=== PATIENT | female | born 1970 | race Caucasian/White ===

== ENCOUNTER 2019-01-22 22:17 | Observation (INO) | payer OTHER ==
[2019-01-22] MEDS ORDERED: ASPIRIN 81 MG TABLET, CHEWABLE PO ONE (22:31)
--- NOTE | 2019-01-22 22:31 | ER Document Report ---
ED Medical Screen (RME) - General Stated Complaint: CHEST PAIN Time Seen by Provider: 01/22/19 22:18 Mode of Arrival: Medic Information source: Patient Notes: Patient is a 48-year-old female who presents from the [facility] with complaint of chest pain. Patient reports the pain started approximately 1 hour prior to arrival. She reports the pain is on the left side of her chest located right behind her breast. Feels like a heavy pressure on her chest with associated nausea, shortness of breath and radiation up into her left jaw. Patient reports past medical history of [place], CVA and pulmonary embolisms. Patient takes Coumadin and ibuprofen.
--- NOTE | 2019-01-22 23:00 | RADIOLOGY REPORT (SQ) ---
EXAM DESCRIPTION: XR CHEST 1 VIEW COMPLETED DATE/TME: 01/22/2019 22:31 CLINICAL HISTORY: 48 years, Female, chest pain COMPARISON: None. NUMBER OF VIEWS: 1 TECHNIQUE: Portable chest LIMITATIONS: None. FINDINGS: Heart size normal. Osteopenia. Lungs clear. No pneumothorax IMPRESSION: No acute cardiopulmonary process copyright 2010 [employer]- All Rights Reserved
--- NOTE | 2019-01-22 23:02 | EKG REPORT ---
SEVERITY:- ABNORMAL ECG - SINUS RHYTHM LEFT ATRIAL ABNORMALITY BORDERLINE T WAVE ABNORMALITIES : Confirmed by: Madalyn Santillan 22-Jan-2019 23:01:44
[2019-01-22] MEDS ORDERED: ACETAMINOPHEN 325 MG TABLET PO ONE (23:35)
[2019-01-23 00:34] LABS: ABSOLUTE BASOPHILS # (AUTO) 0.1 10^3/uL (0.0-0.2); ABSOLUTE EOSINOPHILS # (AUTO) 0.1 10^3/uL (0.0-0.6); ABSOLUTE LYMPHOCYTES (AUTO) 2.6 10^3/uL (0.5-4.7); ABSOLUTE MONOCYTES (AUTO) 0.4 10^3/uL (0.1-1.4); ABSOLUTE NEUT (AUTO) 3.3 10^3/uL (1.7-8.2); EOSINOPHILS % (AUTO) 1.3 % (0-6); HEMATOCRIT 39.6 % (36.0-47.0); HEMOGLOBIN 13.7 g/dL (12.0-15.5); LYMPHOCYTES % (AUTO) 40.1 % (13-45); MEAN CORPUSCULAR HEMOGLOBIN 29.8 pg (27.0-33.4); MEAN CORPUSCULAR HGB CONC 34.5 g/dL (32.0-36.0); MEAN CORPUSCULAR VOLUME 86 fl (80-97); MONOCYTES % (AUTO) 5.7 % (3-13); PLATELET COUNT 356 10^3/uL (150-450); RED BLOOD COUNT 4.59 10^6/uL (3.72-5.28); RED CELL DISTRIBUTION WIDTH 13.9 % (11.5-14.0); SEGMENTED NEUTROPHILS % (AUTO) 51.9 % (42-78); TOTAL CELLS COUNTED % (AUTO) 100 %; WHITE BLOOD COUNT 6.4 10^3/uL (4.0-10.5)
[2019-01-23 00:46] LABS: ALANINE AMINOTRANSFERASE 20 U/L (9-52); ALBUMIN 4.5 g/dL (3.5-5.0); ALKALINE PHOSPHATASE 86 U/L (38-126); ANION GAP 10 (5-19); ASPARTATE AMINO TRANSFERASE 18 U/L (14-36); BILIRUBIN,DIRECT 0.2 mg/dL (0.0-0.4); BILIRUBIN,TOTAL 0.5 mg/dL (0.2-1.3); BLOOD UREA NITROGEN 20 mg/dL (7-20); CALCIUM 10.5 mg/dL (8.4-10.2); CARBON DIOXIDE 28 mmol/L (22-30); CHLORIDE 101 mmol/L (98-107); CREATINE KINASE 25 U/L (30-135); GLUCOSE 93 mg/dL (75-110); SODIUM 138.7 mmol/L (137-145); TOTAL PROTEIN 7.8 g/dL (6.3-8.2)
[2019-01-23 00:58] LABS: CREATINE KINASE MB 0.54 ng/mL (<4.55)
[2019-01-23 01:02] LABS: TROPONIN I < 0.012 ng/mL
--- NOTE | 2019-01-23 02:37 | ER Document Report ---
ED General - General Chief Complaint: Chest Pain > 30 Stated Complaint: CHEST PAIN Time Seen by Provider: 01/22/19 22:18 Mode of Arrival: Medic Notes: Patient is a 48-year-old female who presents with complaint left-sided chest pain that radiates to the left jaw and into the left shoulder. Patient said that it came on quickly and she felt short of breath and nauseous. She did vomit once. She received aspirin and some nitro. She said that did help. Says her pain is almost gone but not completely gone at this time after receiving nitro. She does have history of factor V Leiden deficiency. She has a history of PEs. She is supposed to be on Coumadin. She says she ran out of Coumadin for approximately 2 weeks but recently restarted it a few days ago. She denies any leg pain or leg swelling. No abdominal pain. No other complaints at this time. She does have one previous history of [place] actually 3-1/2-4 years ago. At that time she did have a cardiac cath which did not show any evidence of blockage and therefore she did not require stenting. Her primary care physician is at [facility] and [facility]. TRAVEL OUTSIDE OF THE [place] IN LAST 30 DAYS: No - Related Data Allergies/Adverse Reactions: No Known Allergies Allergy (Unverified 01/23/19 03:47) Past Medical History - General Information source: Patient - Social History Smoking Status: Current Every Day Smoker Frequency of alcohol use: None Drug Abuse: None Family History: Reviewed & Not Pertinent Patient has suicidal ideation: No Patient has homicidal ideation: No Renal/ Medical History: Denies: Hx Peritoneal Dialysis Review of Systems - Review of Systems Notes: My Normal Review Basic REVIEW OF SYSTEMS: CONSTITUTIONAL : Denies fever, chills, or sweats. Denies recent illness. EENT: Denies eye, ear, throat, or mouth pain or symptoms. Denies nasal or sinus congestion. CARDIOVASCULAR: Chest pain RESPIRATORY: Some shortness of breath GASTROINTESTINAL: Denies abdominal pain. Vomiting x1 GENITOURINARY: Denies difficulty urinating, painful urination, burning, frequency, or blood in urine. MUSCULOSKELETAL: Denies neck or back pain or joint pain or swelling. SKIN: Denies rash or skin lesions. NEUROLOGICAL: Denies altered mental status or loss of consciousness. Denies headache. Denies weakness or paralysis or loss of use of either side. Denies problems with gait or speech. Denies sensory or motor loss. ALL OTHER SYSTEMS REVIEWED AND NEGATIVE. Physical Exam - Vital signs Vitals: Temp Pulse Resp BP Pulse Ox 98.0 F 90 18 123/77 100 01/22/19 22:56 01/22/19 22:56 01/22/19 22:56 01/22/19 22:56 01/22/19 22:56 - Notes Notes: General Appearance: Well nourished, alert, cooperative, no acute distress, mild obvious discomfort. Vitals: reviewed, See vital signs table. Head: no swelling or tenderness to the head Eyes: PERRL, EOMI, Conjuctiva clear Lungs: No wheezing, No rales, No rhonci, No accessory muscle use, good air exchange bilaterally. Heart: Normal rate, Regular rythm, No murmur, no rub Abdomen: Normal BS, soft, No rigidity, No abdominal tenderness, No guarding, no rebound, no abdominal masses, no organomegaly Extremities: strength 5/5 in all extremities, good pulses in all extremities, no swelling or tenderness in the extremities, no edema. Skin: warm, dry, appropriate color, no rash Neuro: speech clear, oriented x 3, normal affect, responds appropriately to questions. Course - Re-evaluation Re-evalutation: 01/23/19 04:50 Patient's chest pain is resolved now with the nitro. She has Nitropaste in andrea ce. She received aspirin. She does admit that she ran out of her Coumadin for about 2 weeks but restarted recently however her INR is only 0.92. I therefore did go forward the CT of the chest which shows no evidence of pulmonary embolism. Character is more consistent with that of possible coronary disease and that it was left-sided radiating into the neck and into the arm and she did vomit with it. Also the pain was resolved with nitro. Patient's initial EKG and troponin are negative. I felt appropriate to consult hospitalist for consideration for admission. I did speak with Dr. العلي agrees to evaluate the patient for consideration for admission. Dictation of this chart was performed using voice recognition software; therefore, there may be some unintended grammatical errors. - Vital Signs Vital signs: Temp Pulse Resp BP Pulse Ox 98.0 F 90 18 123/77 100 01/22/19 22:56 01/22/19:56 01/22/19 22:56 01/22/19 22:56 01/22/19 22:56 - Laboratory Result Diagrams: 01/23/19 00:19 01/23/19 00:19 Laboratory results interpreted by me: 01/23/19 00:19 Calcium 10.5 H Creatine Kinase 25 L - EKG Interpretation by Me Additional EKG results interpreted by me: 01/23/19 02:36 EKG is reviewed and interpreted by me. EKG shows normal sinus rhythm with a rate of 83 beats per minute. No ST segment elevation or depression. No ischemic T wave inversions. IL interval, QRS duration, QT intervals are within normal range. No old EKG available for comparison. Discharge - Discharge Clinical Impression: Chest pain Qualifiers: Chest pain type: unspecified Qualified Code(s): R07.9 - Chest pain, unspecified Condition: Stable Disposition: ADMITTED OBSERVATION Admitting Provider: Hospitalist Unit Admitted: Telemetry
[2019-01-23] MEDS ORDERED: NITROGLYCERIN 2% OINTMENT 1 GM PACKET TP ONE (02:49)
[2019-01-23 03:04] LABS: INTERNATIONAL RATION (INR) 0.92; PROTHROMBIN TIME 12.8 SEC (11.4-15.4)
[2019-01-23] MEDS ORDERED: NORMAL SALINE 500 ML IV ONE (03:50)
--- NOTE | 2019-01-23 04:41 | RADIOLOGY REPORT (SQ) ---
EXAM DESCRIPTION: CT CHEST ANGIOGRAPHY WITHOUT THEN WITH IV CONTRAST COMPLETED DATE/TME: 01/23/2019 03:50 CLINICAL HISTORY: 48 years, Female, Hx of PE, subtherapeutic INR COMPARISON: None. TECHNIQUE: 536 Images stored on PACS. All CT scanners at this facility use dose modulation, iterative reconstruction, and/or weight based dosing when appropriate to reduce radiation dose to as low as reasonably achievable (ALARA). Axial images were obtained with coronal and sagittal MIPS reconstructions [facility]: Dose Right [facility]: CareDose [facility]: Dose Right [facility]: Teradose 4D [facility]: [employer] LIMITATIONS: None. FINDINGS: The mediastinal vasculature enhances normally. No intraluminal filling defect to suggest pulmonary most. Negative for thoracic or degenerative or dissection. Heart and pericardium are unremarkable. Limited evaluation of upper abdomen shows cystic change to the liver. Bilateral breast prostheses. Osseous structures grossly intact. No pneumothorax. Visualized airways patent. Lungs clear. IMPRESSION: Negative for acute intrathoracic process TECHNICAL DOCUMENTATION: Quality ID # 436: Final reports with documentation of one or more dose reduction techniques (e.g., Automated exposure control, adjustment of the mA and/or kV according to patient size, use of iterative reconstruction technique) copyright 2010 [employer]- All Rights Reserved
[2019-01-23] MEDS ORDERED: ACETAMINOPHEN 325 MG TABLET PO PRN (05:05)
[2019-01-23] MEDS ORDERED: ONDANSETRON HCL INJ/PF 4 MG/2 ML SDV IV PRN (05:05)
[2019-01-23] MEDS ORDERED: GLUCAGON,HUMAN RECOMB 1 MG INJ SUBCUT PRN (05:05)
[2019-01-23] MEDS ORDERED: MAGNESIUM HYDROXIDE SUSP 30 ML UDCUP PO PRN (05:05)
[2019-01-23] MEDS ORDERED: DEXTROSE 50%-WATER 25 GM/50 ML DISP.SYRIN IV PRN ×2 (05:05)
[2019-01-23] MEDS ORDERED: ACETAMINOPHEN 650 MG SUPP.RECT PR PRN (05:05)
[2019-01-23] MEDS ORDERED: DEXTROSE 40% GEL 15 GM TUBE PO PRN ×2 (05:05)
[2019-01-23] MEDS ORDERED: MORPHINE SULFATE 10 MG/ML INJ IV PRN (05:15)
[2019-01-23] MEDS ORDERED: NITROGLYCERIN 0.4 MG/TAB 25 TAB/BOTTLE SL PRN (05:16)
[2019-01-23 05:37] LABS: CHOLESTEROL 238.47 mg/dL (0-200); CREATINE KINASE 26 U/L (30-135); TRIGLYCERIDES 83 mg/dL (<150)
[2019-01-23 05:48] LABS: DIRECT LDL 141 mg/dL (<100)
[2019-01-23] MEDS ORDERED: PANTOPRAZOLE SODIUM 40 MG TABLET.DR PO SCH (06:00)
[2019-01-23] MEDS ORDERED: WARFARIN SODIUM 5 MG TABLET PO ONE (06:45)
--- NOTE | 2019-01-23 06:45 | PDOC H&P ---
History of Present Illness Admission Date/PCP: 01/23/19 04:57 Primary CARE physician: Jacque cuenca in [place] Patient complains of: Chest pain History of Present Illness: ERIC HART is a 48 year old female with history of multiple medical problems that will be mentioned below, who is currently an inmate and presents with left substernal and inframammary chest pain that started as a sharp pain and graded 9/10 in severity with radiation to her left jaw as well as nausea and vomiting twice. [facility] and later experienced chest heaviness and dyspnea. She denies any cough or wheezing or hemoptysis. She has a history of factor V Leiden deficiency and has been on Coumadin but ran out for 2-1/2 weeks and went back on it to days ago. Upon presentation to the emergency room her EKG showed normal sinus rhythm with a rate of 83 with left atrial enlargement and Q waves inferiorly. Vital signs were within normal and labs revealed normal CBC and INR 0.92, calcium of 10.5 and her initial set of cardiac enzymes as well as a repeat set came back negative. Portable chest X ray showed no acute cardiopulmonary disease and chest CTA revealed no evidence for PE or acute pathology. The patient was given 1 sublingual nitro glycerin on route to the ER and later at the a gram of Nitropaste as well as 4 baby aspirin. She was fairly comfortable during my interview. She will be admitted to an observation telemetry bed for further evaluation and management. Past Medical History Past Medical History: tobacco abuse, hypertension, [place], CVA, Factor 5 liden mutation, PE twice , cerebral aneurysm x2 s/p clipping and stenting Medical History: Other Neurological Medical History: Reports: Ischemic CVA Psychiatric Medical History: Reports: Tobacco Dependency Hematology: Reports: Other - Factor 5 Liden deficiency Hematology History Note: Factor V Leiden deficiency, history of PE twice, history of cerebral aneurysms x2 Past Surgical History Past Surgical History: Craniotomy ad cerebral stent, and clipping of a cerebral aneurysm, 2 laparotomies, 5 laparoscopies, bilateral knee surgery, breast augmentation twice, hystrerectomy, appendectomy and tonsillectomy Past Surgical History: Reports: Tonsillectomy, Other - Craniotomy ad cerebral stent, and clipping of a cerebral aneurysm, Social History Smoking Status: Current Every Day Smoker Frequency of Alcohol Use: None Hx Recreational Drug Use: No Family History Family History: CAD, Hypertension, Malignancy Parental Family History Reviewed: Yes Children Family History Reviewed: Yes Sibling(s) Family History Reviewed.: Yes Medication/Allergy Allergies/Adverse Reactions: No Known Allergies Allergy (Unverified 01/23/19 03:47) Review of Systems Review of Systems: As per history of present illness. All pertinent systems were reviewed above. Constitutional, HEENT, cardiovascular, respiratory, GI, , musculoskeletal, corby ro, psychiatric, endocrine, integumentary and hematologic systems were reviewed and are otherwise negative/unremarkable except for positive findings mentioned above in the HPI. Physical Exam Vital Signs: Temp Pulse Resp BP Pulse Ox 98.0 F 90 20 125/86 H 98 01/22/19 22:56 01/22/19 22:56 01/23/19 05:00 01/23/19 04:00 01/23/19 05:00 Intake & Output 01/21/19 01/22/19 01/23/19 06:59 06:59 06:59 Weight 64.4 kg Exam: Generally: Pleasant middle-aged female in no acute distress Vital signs-as listed Head - atraumatic, normocephalic. Pupils - equal, round and reactive to light and accommodation. Extraocular movements are intact. No scleral icterus. Oropharynx - moist mucous membranes and tongue. No pharyngeal erythema or exudate. Neck - supple. No JVD. Carotid pulses 2+ bilaterally. No carotid bruits. No palpable thyromegaly or lymphadenopathy. Cardiovascular - regular rate and rhythm. Normal S1 and S2. No murmurs, gallops or rubs. Lungs - clear to auscultation bilaterally. Abdomen - soft and nontender. Positive bowel sounds. No palpable organomegaly or masses. Extremities - no pitting edema, clubbing or cyanosis. Neuro - grossly non-focal. Skin - no rashes. Breast, pelvic and rectal - deferred Results Laboratory Results: 01/23/19 00:19 01/23/19 00:19 01/23/19 01/23/19 00: 00:19 WBC 6.4 RBC 4.59 Hgb 13.7 Hct 39.6 MCV 86 MCH 29.8 MCHC 34.5 RDW 13.9 Plt Count 356 Seg Neutrophils % 51.9 Lymphocytes % 40.1 Monocytes % 5.7 Eosinophils % 1.3 Basophils % 1.0 Absolute Neutrophils 3.3 Absolute Lymphocytes 2.6 Absolute Monocytes 0.4 Absolute Eosinophils 0.1 Absolute Basophils 0.1 Sodium 138.7 Potassium 4.0 Chloride 101 Carbon Dioxide 28 Anion Gap 10 BUN 20 Creatinine 0.76 Est GFR ( Amer) > 60 Est GFR (Non-Af Amer) > 60 Glucose 93 Calcium 10.5 H Total Bilirubin 0.5 AST 18 ALT 20 Alkaline Phosphatase 86 Total Protein 7.8 Albumin 4.5 01/23/19 01/23/19 01/23/19 00:19 00:19 03:55 Creatine Kinase 25 L CK-MB (CK-2) 0.54 Troponin I < 0.012 < 0.012 Impressions: Chest X-Ray 01/22/19 22:31 IMPRESSION: No acute cardiopulmonary process copyright 2010 [employer]- All Rights Reserved Chest/Abdomen CTA 01/23/19 03:50 IMPRESSION: Negative for acute intrathoracic process TECHNICAL DOCUMENTATION: Quality ID # 436: Final reports with documentation of one or more dose reduction techniques (e.g., Automated exposure control, adjustment of the mA and/or kV according to patient size, use of iterative reconstruction technique) copyright 2010 [employer]- All Rights Reserved Assessment and Plan - Diagnosis (1) Chest pain Qualifiers: Chest pain type: unspecified Qualified Code(s): R07.9 - Chest pain, unspecified Is this a current diagnosis for this admission?: Yes Plan: Chest pain, rule out acute coronary syndrome. The patient will be admitted to an observation telemetry bed. Will follow serial cardiac enzymes and EKGs. We will obtain a cardiology consult in a.m. for further cardiac risk stratification. The patient will be placed on aspirin as well as p.r.n. sublingual nitroglycerin and morphine sulfate for pain. (2) Tobacco abuse Is this a current diagnosis for this admission?: Yes Plan: Smoking cessation was discussed with the patient and will be further discussed here (3) PVD (peripheral vascular disease) Is this a current diagnosis for this admission?: Yes Plan: ASPIRIN... (4) Factor 5 Leiden mutation, heterozygous Is this a current diagnosis for this admission?: Yes Plan: CONTINUE COUMADIN (5) DVT prophylaxis Is this a current diagnosis for this admission?: Yes Plan: Subcutaneous Lovenox pending therapeutic INR
[2019-01-23 08:50] LABS: INTERNATIONAL RATION (INR) 0.97; PROTHROMBIN TIME 13.4 SEC (11.4-15.4)
[2019-01-23] MEDS: ENOXAPARIN SODIUM INJ 40 MG/0.4 ML DISP.SYRIN SUBCUT SCH (09:38)
[2019-01-23] MEDS: ASPIRIN 325 MG TABLET, ENT COATED PO SCH (09:38)
[2019-01-23 12:23] LABS: CREATINE KINASE MB 0.49 ng/mL (<4.55)
[2019-01-23 12:28] LABS: TROPONIN I < 0.012 ng/mL
--- NOTE | 2019-01-23 12:32 | EKG REPORT ---
SEVERITY:- ABNORMAL ECG - SINUS RHYTHM LEFT ATRIAL ABNORMALITY BORDERLINE T ABNORMALITIES, ANT-LAT LEADS : Confirmed by: Madalyn Santillan 23-Jan-2019 12:31:19
--- NOTE | 2019-01-23 14:16 | Progress Note ---
Provider Note Provider Note: Patient evaluated. She is resting comfortably in her bed. Prescription lead security officer is present. She is requesting a diet, and is placed on a cardiac and vitamin K appropriate diet. Continue on Coumadin Lovenox cross bridge. Atorvastatin 20 mg nightly started for hyperlipidemia. She is already on aspirin.
[2019-01-23] MEDS: NORMAL SALINE 1000 ML 1,000 ML IV PRN (15:05)
[2019-01-23 18:20] LABS: CREATINE KINASE MB 0.48 ng/mL (<4.55)
[2019-01-23 18:24] LABS: TROPONIN I < 0.012 ng/mL
[2019-01-23] MEDS ORDERED: BUSPIRONE HCL 10 MG TABLET PO PRN (21:00)
[2019-01-23] MEDS: MIRTAZAPINE 15 MG TABLET PO SCH (21:25)
[2019-01-23] MEDS: BENZTROPINE MESYLATE 1 MG TABLET PO SCH (21:25)
[2019-01-23] MEDS: DONEPEZIL HCL 5 MG TABLET PO SCH (21:25)
[2019-01-23] MEDS: ATORVASTATIN CALCIUM 20 MG TABLET PO SCH (21:26)
[2019-01-23] MEDS: OLANZAPINE 5 MG TAB.RAPDIS PO SCH (21:26)
[2019-01-23] MEDS: ALPRAZOLAM 0.5 MG TABLET PO SCH (21:26)
[2019-01-23] MEDS ORDERED: (PENDING PHARMACY ID) (Prazosin Hcl [Minipress] 2 MG) PO SCH (22:00)
--- NOTE | 2019-01-23 22:27 | PDOC CONSULTATION ---
Consultation-Blank Consultation: CARDIOLOGY CONSULTATION by Dr. Fatuma Carrasquillo. Patient seen at 3:30 PM on 9. Note 60 minutes spent on this patient more than 50% of time spent in direct patient care. REASON all plan For CONSULTATION: Chest Pain in a Patient with a History of Coronary Artery Disease. HISTORY OF PRESENT ILLNESS: Patient Is a 48-year-old Female with Known History of Hypertension, Coronary Artery Disease, Prior History of MN, Factor V Leyden Deficiency, with a History of Bilateral Pulmonary Emboli Embolism x2 on Coumadin Who States That She Had Sudden Onset of Sharp Pain in the Left Front of the Chest in the Inframammary Area. With Radiation up into the Neck and Jaw. The Pain Lasted for about a Hour and a Half. She States That When She Came to the Emergency Room She Still Had Pain. She Was Given Nitropaste after 1 Sublingual Nitroglycerin, and 45 Minutes Later the Pain Spontaneously Subsided after the Placement of the Nitropaste. She States That She Was Slightly Short of Breath. There Was No Tenderness in the Chest to Palpation Where She Had the Chest Pain. Exertion Did Not Increase the Pain. There Is No Relieving or Aggravating Factors. There Was No Palpitations. The Patient States That This Sort of Pain Is Different from the One That She Had When She Stated That She Was Told That She Had a Myocardial Infarction in the past. There Is No Palpitations. There Is No PND Orthopnea or Leg Edema. There Is No Dizziness, Near-Syncope or Syncope. There Is No Recurrence of TIA CVA Symptoms. Note the at Present the Patient Is Intubated of [facility]. PAST MEDICAL HISTORY: History of Hypertension. She States She Has a History of Coronary Artery Disease and Sometime Ago She Had a Cardiac Catheterization, but Did Not Require Stents. She Also Has a History of Factor V Leyden Deficiency and Has Had a History of Pulmonary Embolism x2 She Was Initially on Xarelto, Subsequently Was Switched to Coumadin. The Patient Unfortunately States That She Ran Out Of Coumadin about 2-1/2 Weeks Ago. Her Pulmonary CTA Is Negative for Recurrence of Pulmonary Embolism at Present. She has no history of diabetes mellitus. Or thyroid disease. She has history of COPD. The patient is a smoker. No recent symptoms of wheezing or cough. 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 She also has a history of COPD.. She has a history of mitral valve prolapse. She has a history of mitral valve prolapse. She has a history of chronic back pain, and history of reflex sympathetic dystrophy with bilateral leg pain. She has a past history of CVA/TIA. She is fully recovered from CVA. She denies any history of sleep apnea. There is no history of chronic kidney disease. PAST SURGICAL HISTORY: She has had a history of craniotomy and history of cerebral stent and clipping of the left MCA. She has had 2 laparotomies, 5 laparoscopies. She is also had bilateral knee surgery, breast augmentation, tonsillectomy, hysterectomy, and appendectomy. She has also had a history of cardiac catheterization. FAMILY HISTORY: Is positive for coronary artery disease in multiple family members. And also there is hypertension and malignancy in the family. SOCIAL HISTORY: The patient is a smoker. There is no history of EtOH abuse. ALLERGIES: The patient has no known drug allergies. DISPOSITION: The patient is a full code. She states her ex- is her surrogate healthcare decision maker. REVIEW OF SYSTEMS: CONSTITUTIONAL: Denies fever chills or rigors, complains of generalized fatigue and weakness. HEAD: No history of headaches or head injury. History of craniotomy present as mentioned earlier.. EYES: No history of amblyopia or diplopia no history of amaurosis fugax. YEARS: No history of hearing loss no history of tinnitus, no recurrent ear infections. NOSE: No history of hayfever. No nosebleeds. MOUTH: No history of altered taste sensation, no history of ulcers in the mouth no bleeding from gums. THROAT: No history of odynophagia dysphagia, no recurrent sore throats. SKIN: No history of pruritus, no history of yellowish discoloration of the skin, no skin cancer or psoriasis. NECK: No history of neck pain or neck swelling. No goiter. LUNGS: No history of asthma , but has a history of COPD. The patient has no history of sleep apnea. No history of wheezing or cough. No symptoms of pneumonia or upper or lower respiratory tract infection. There is a history of pulmonary embolism. Note that the Coumadin is subtherapeutic. No history of pleuritic chest pain no hemoptysis. CARDIAC:: She has a history of coronary artery disease, and also has a history of prior MN. There is no history of cardiac arrhythmia or heart failure.. No history of congestive heart failure. No history of cardiac arrhythmia. No history of PND orthopnea palpitations dizziness or syncope. She has a history of hypertension. Patient admitted with what seems to be noncardiac chest pain. METABOLIC: No history of obesity present and no knowledge of history of hyperlipidemia. MUSCULOSKELETAL: No history of arthritis present, and no history of collagen vascular disease. She has a history of chronic back pain, and history of reflex sympathetic dystrophy. RENAL: No history of chronic kidney disease. No symptoms of UTI. No history of hematuria pyuria or dysuria. ENDOCRINE: No history off diabetes mellitus. No history of thyroid disease. No history of polydipsia polyuria no history of heat or cold intolerance. GI: Very occasional history of GERD symptoms present. No history of GI bleed, and no history of abdominal pain and and or nausea, or vomiting. No fatty food intolerance. No history of GI bleed. No history of altered bowel movements. No history of cirrhosis or ascites. CLERK RATING: There is a history of TIA CVA. She has no residual from a CVA. She has a history of intracerebral bleed in the past due to aneurysms and she had a stent in the left supraclinoid ICA, and a stent in the left MCA. No history of headaches migraines or seizures. PSYCHIATRIC: No history of depression present, no history of anxiety. No history of suicidal or homicidal ideation. VASCULAR: No history of calf or buttock claudication.. No history of DVT. HEMATOLOGICAL no history of bleeding diathesis or clotting disorders. She has a factor V Leyden deficiency. PHYSICAL EXAMINATION: The patient is well-built and well-nourished. At present in no acute distress patient. She is well-groomed. She denies any chest pain or discomfort. Selected Entries 01/23/19 15:35 Temperature 98.6 F Temperature Oral Source Pulse Rate 88 Respiratory 16 Rate Blood Pressure 127/81 H Blood Pressure 96 Mean BP Location Right Arm BP Position Supine O2 Sat by Pulse 100 Oximetry Oxygen Delivery Room Air Method HEAD: Atraumatic, normocephalic. EYES: Pupils equal round and reactive to light, extraocular movements intact, sclera anicteric, conjunctiva are normal. ENT: TMs normal, nares patent, oropharynx clear without exudates. Moist mucous membranes. NECK: Normal range of motion, supple without lymphadenopathy or JVD. Carotids are equal there is no bruits. There is no thyromegaly. There is no accessory muscles of respiration in use. Trachea central LUNGS: There is diminished air entry and prolonged expiration. Breath sounds clear to au scultation bilaterally and equal. No wheezes rales or rhonchi. Percussion there is hyperresonance. On palpation there is no chest wall tenderness. HEART: S1-S2 is heard. S1 is of normal intensity. There is no S3 gallop. There is no S4 gallop. There is systolic murmur left sternal border and apex without radiation. There is no rub.. ABDOMEN: Soft, nontender, normoactive bowel sounds. There is no hepatosplenic megaly no guarding, no rebound. No masses appreciated. EXTREMITIES: Normal range of motion, no pitting or edema. No clubbing or cyanosis. Femorals are well felt. There is no femoral bruits. Leg pulses are well felt. There is no DVT or cellulitis. There is no calf tenderness NEUROLOGICAL: Cranial nerves II through XII grossly intact. Normal speech, normal gait. The patient is awake alert oriented x3 with no focal deficits. PSYCH: Normal mood, normal affect. The patient judgment and insight are intact SKIN: Warm, Dry, normal turgor, no rashes or lesions noted. There is no petechia or ecchymosis. Current Medications Generic Name Dose Route Start Last Admin Trade Name Freq PRN Reason Stop Dose Admin Acetaminophen 650 mg 01/23/19 05:05 Tylenol 325 Mg Tablet PO 02/22/19 05:04 Q4HP PRN FOR PAIN OR TEMP Acetaminophen 650 mg 01/23/19 05:05 Tylenol 650 Mg Supp IL 02/22/19 05:04 Q4HP PRN FOR PAIN OR TEMP Alprazolam 1 mg 01/23/19 22:00 01/23/19 21:26 Xanax 0.5 Mg Tablet PO 01/30/19 21:59 1 mg Q12 JANNETH Administration Aspirin 325 mg 01/23/19 10:00 01/23/19 09:38 Ecotrin 325 Mg Ec Tablet PO 02/22/19 09:59 325 mg DAILY JANNETH Administration Atorvastatin Calcium 20 mg 01/23/19 22:00 01/23/19 21:26 Lipitor 20 Mg Tablet PO 02/22/19 21:59 20 mg QHS JANNETH Administration Benztropine Mesylate 0.5 mg 01/24/19 08:00 Cogentin 1 Mg Tablet PO 02/23/19 07:59 QAM JANNETH Benztropine Mesylate 1 mg 01/23/19 22:00 01/23/19 21:25 Cogentin 1 Mg Tablet PO 02/22/19 21:59 1 mg QHS JANNETH Administration Buspirone HCl 15 mg 01/23/19 21:00 Buspar 10 Mg Tablet PO 02/22/19 20:59 Q12HP PRN ANXIETY Dextrose 12.5 gm 01/23/19 05:05 Dextrose Inj 50% Syringe (25 Gm/50 Ml) IV 02/22/19 05:04 PRN PRN FOR BG 50-69 IN ALERT PATIENT Protocol Dextrose 25 gm 01/23/19 05:05 Dextrose Inj 50% Syringe (25 Gm/50 Ml) IV 02/22/19 05:04 PRN PRN See Label Comments Protocol Donepezil HCl 10 mg 01/23/19 22:00 01/23/19 21:25 Aricept 5 Mg Tablet PO 02/22/19 21:59 10 mg QHS JANNETH Administration Enoxaparin Sodium 40 mg 01/23/19 10:00 01/23/19 09:38 Lovenox Inj 40 Mg/0.4 Ml Disp.Syrin SUBCUT 02/22/19 09:59 40 mg DAILY JANNETH Administration Fluoxetine HCl 40 mg 01/24/19 10:00 Prozac 20 Mg Capsule PO 02/23/19 09:59 DAILY JANNETH Glucagon 1 mg 01/23/19 05:05 Glucagen Inj 1 Mg Vial SUBCUT 02/22/19 05:04 PRN PRN Evaluate for BG < 70 Protocol Glucose 15 gm 01/23/19 05:05 Glutose 40% Gel 15 Gm Tube PO 02/22/19 05:04 PRN PRN For BG 50-69 in Alert Patient Protocol Glucose 30 gm 01/23/19 05:05 Glutose 40% Gel 15 Gm Tube PO 02/22/19 05:04 PRN PRN FOR BG < 50 IN ALERT PATIENT Protocol Sodium Chloride 1,000 mls @ 100 mls/hr 01/23/19 05:05 01/23/19 15:05 Nacl 0.9% 1000 Ml Iv Soln IV 02/22/19 05:04 100 mls/hr CONTINUOUS PRN Administration THIS MED IS NOT "PRN" Magnesium Hydroxide 30 ml 01/23/19 05:05 Milk Of Magnesia 30 Ml Udcup PO 02/22/19 05:04 DAILYP PRN FOR CONSTIPATION Mirtazapine 30 mg 01/23/19 22:00 01/23/19 21:25 Remeron 15 Mg Tablet PO 02/22/19 21:59 30 mg QHS JANNETH Administration Morphine Sulfate 2 mg 01/23/19 05:15 Morphine 10 Mg/Ml Inj IV 01/30/19 05:14 Q2HP PRN FOR CHEST PAIN Nitroglycerin 1 tab 01/23/19 05:16 Nitrostat 0.4 Mg (1/150 Gr) Tabs 25/Bottle SL 02/22/19 05:15 Q5MP PRN FOR CHEST PAIN Olanzapine 15 mg 01/23/19 22:00 01/23/19 21:26 Zyprexa Zydis 5 Mg Odt Tablet PO 02/22/19 21:59 15 mg QHS JANNETH Administration Ondansetron HCl 4 mg 01/23/19 05:05 Zofran Inj/Pf 4 Mg/2 Ml Sdv IV 02/22/19 05:04 Q4HP PRN FOR NAUSEA/VOMITING Pantoprazole Sodium 40 mg 01/24/19 06:[address] Tablet PO 02/23/19 05:59 Q6AM [facility] Patient Own Medication 2 mg 01/23/19 22:00 Prazosin Hcl [Minipress] PO 02/22/19 21:59 QHS JANNETH Sodium Chloride 2.5 ml 01/23/19 06:00 01/23/19 21:27 Saline Flush 2.5 Ml Monoject Prefil Syrin IV 02/22/19 05:59 Not Given Q8 JANNETH Discontinued Medications Generic Name Dose Route Start Last Admin Trade Name Freq PRN Reason Stop Dose Admin Acetaminophen 650 mg 01/22/19 23:35 01/23/19 00:20 Tylenol 325 Mg Tablet PO 01/22/19 23:36 650 mg NOW ONE Administration Aspirin 324 mg 01/22/19 22:31 01/23/19 00:20 Aspirin 81 Mg Chewable Tablet PO 01/22/19 22:32 324 mg NOW ONE Administration Sodium Chloride 500 mls @ 0 mls/hr 01/23/19 03:50 01/23/19 05:16 Nacl 0.9% 500 Ml Iv Soln IV 01/23/19 03:51 999 mls/hr NOW ONE Administration Wide Open Nitroglycerin 1 gm 01/23/19 02:49 01/23/19 03:47 Nitrol 2% Ointment 1gm Packet TP 01/23/19 02:50 1 gm NOW ONE Administration Pantoprazole Sodium 40 mg 01/23/19 06:00 01/23/19 06:[address] Tablet PO 02/22/19 05:59 40 mg Q6AM JANNETH Administration Warfarin Sodium 5 mg 01/23/19 06:45 01/23/19 07:37 Coumadin 5 Mg Tablet PO 01/23/19 06:46 5 mg NOW ONE Administration HOME MEDICATIONS: Alprazolam [Xanax] 1 mg PO Q12 01/23/19 Benztropine Mesylate [Benztropine Mesylate 0.5 mg Tablet] 0.5 mg PO QAM 01/23/19 Benztropine Mesylate [Benztropine Mesylate 0.5 mg Tablet] 1 mg PO QHS 01/23/19 Buspirone HCl [Buspar 15 mg Tablet] 15 mg PO Q12HP PRN 01/23/19 Donepezil HCl [Aricept] 10 mg PO QHS 01/23/19 Fluoxetine HCl [Prozac] 40 mg PO DAILY 01/23/19 Mirtazapine [Remeron] 30 mg PO QHS 01/23/19 Olanzapine [Zyprexa] 15 mg PO QHS 01/23/19 Omeprazole 40 mg PO DAILY 01/23/19 Prazosin HCl [Minipress] 2 mg PO QHS 01/23/19 She used to be on Coumadin, but ran out of it 2 1/2 weeks ago. Labs- Entire Visit 01/23/19 01/23/19 01/23/19 00:19 00:19 00:19 WBC 6.4 RBC 4.59 Hgb 13.7 Hct 39.6 MCV 86 MCH 29.8 MCHC 34.5 RDW 13.9 Plt Count 356 Seg Neutrophils % 51.9 Lymphocytes % 40.1 Monocytes % 5.7 Eosinophils % 1.3 Basophils % 1.0 Absolute Neutrophils 3.3 Absolute Lymphocytes 2.6 Absolute Monocytes 0.4 Absolute Eosinophils 0.1 Absolute Basophils 0.1 PT INR Sodium 138.7 Potassium 4.0 Chloride 101 Carbon Dioxide 28 Anion Gap 10 BUN 20 Creatinine 0.76 Est GFR ( Amer) > 60 Est GFR (Non-Af Amer) > 60 Glucose 93 Calcium 10.5 H Total Bilirubin 0.5 Direct Bilirubin 0.2 Neonat Total Bilirubin Not Reportable Neonat Direct Bilirubin Not Reportable Neonat Indirect Bili Not Reportable AST 18 ALT 20 Alkaline Phosphatase 86 Creatine Kinase 25 L CK-MB (CK-2) 0.54 Troponin I < 0.012 Total Protein 7.8 Albumin 4.5 Triglycerides Cholesterol LDL Cholesterol Direct VLDL Cholesterol HDL Cholesterol 01/23/19 01/23/19 01/23/19 00:19 03:55 03:55 WBC RBC Hgb Hct MCV MCH MCHC RDW Plt Count Seg Neutrophils % Lymphocytes % Monocytes % Eosinophils % Basophils % Absolute Neutrophils Absolute Lymphocytes Absolute Monocytes Absolute Eosinophils Absolute Basophils PT 12.8 INR 0.92 Sodium Potassium Chloride Carbon Dioxide Anion Gap BUN Creatinine Est GFR ( Amer) Est GFR (Non-Af Amer) Glucose Calcium Total Bilirubin Direct Bilirubin Neonat Total Bilirubin Neonat Direct Bilirubin Neonat Indirect Bili AST ALT Alkaline Phosphatase Creatine Kinase 26 L CK-MB (CK-2) Troponin I < 0.012 Total Protein Albumin Triglycerides 83 Cholesterol 238.47 H LDL Cholesterol Direct 141 H VLDL Cholesterol 17.0 HDL Cholesterol 74 01/23/19 01/23/19 01/23/19 03:55 08:11 11:52 WBC RBC Hgb Hct MCV MCH MCHC RDW Plt Count Seg Neutrophils % Lymphocytes % Monocytes % Eosinophils % Basophils % Absolute Neutrophils Absolute Lymphocytes Absolute Monocytes Absolute Eosinophils Absolute Basophils PT 13.4 INR 0.97 Sodium Potassium Chloride Carbon Dioxide Anion Gap BUN Creatinine Est GFR ( Amer) Est GFR (Non-Af Amer) Glucose Calcium Total Bilirubin Direct Bilirubin Neonat Total Bilirubin Neonat Direct Bilirubin Neonat Indirect Bili AST ALT Alkaline Phosphatase Creatine Kinase 26 L CK-MB (CK-2) 0.54 Troponin I Cancelled Total Protein Albumin Triglycerides Cholesterol LDL Cholesterol Direct VLDL Cholesterol HDL Cholesterol 01/23/19 01/23/19 01/23/19 11:52 17:20 17:20 WBC RBC Hgb Hct MCV MCH MCHC RDW Plt Count Seg Neutrophils % Lymphocytes % Monocytes % Eosinophils % Basophils % Absolute Neutrophils Absolute Lymphocytes Absolute Monocytes Absolute Eosinophils Absolute Basophils PT INR Sodium Potassium Chloride Carbon Dioxide Anion Gap BUN Creatinine Est GFR ( Amer) Est GFR (Non-Af Amer) Glucose Calcium Total Bilirubin Direct Bilirubin Neonat Total Bilirubin Neonat Direct Bilirubin Neonat Indirect Bili AST ALT Alkaline Phosphatase Creatine Kinase 25 L CK-MB (CK-2) 0.49 0.48 Troponin I < 0.012 < 0.012 Total Protein Albumin Triglycerides Cholesterol LDL Cholesterol Direct VLDL Cholesterol HDL Cholesterol Chest X-Ray 01/22/19 22:31 IMPRESSION: No acute cardiopulmonary process copyright 2010 [employer]- All Rights Reserved Chest/Abdomen CTA 01/23/19 03:50 IMPRESSION: Negative for acute intrathoracic process TECHNICAL DOCUMENTATION: Quality ID # 436: Final reports with documentation of one or more dose reduction techniques (e.g., Automated exposure control, adjustment of the mA and/or kV according to patient size, use of iterative reconstruction technique) EKG: Serial EKG shows sinus rhythm. Borderline T wave abnormalities. Probable left atrial enlargement. IMPRESSION/RECOMMENDATION: 1. Chest pain: Appears noncardiac. So far cardiac enzymes are negative. And no major EKG changes [place] or minor EKG changes. With the patient in view of the patient's prior history of CAD, would at least get a IV Lexiscan Cardiolite stress test on Friday. 2. History of coronary artery disease: History of old MN. Continue current medications. 3 factor V Leyden deficiency: History of pulmonary embolism x2. The patient pulmonary CTA is negative for recurrence of pulmonary embolism. Note that the patient's INR is subtherapeutic. We will increase the patient's Lovenox to 1 mg/kg subcutaneously every 12 hours. 4. Hypertension: Blood pressure is well controlled. 5. Prior history of CVA and TIA, with a history of intracranial hemorrhage due to cerebral aneurysm, status post clipping and stenting of the cerebral arteries as mentioned earlier. Appears to be stable. 6. History of mitral valve prolapse. 7. COPD: Stable at baseline. No evidence of acute exacerbation of COPD. 8. Tobacco abuse disorder: Tobacco cessation counseling given. 3 minutes spent on this. MEDICATIONS reviewed. Medications adjusted with increasing the dose of Lovenox. Medical decision making is of high complexity. 60 minutes spent on this patient more than 50% of time spent in direct patient care. Management plan discussed with attending physician on the case. .
[2019-01-24] MEDS: PANTOPRAZOLE SODIUM 40 MG TABLET.DR PO SCH (06:46)
[2019-01-24] MEDS: NORMAL SALINE 1000 ML 1,000 ML IV PRN ×2 (06:47→13:46)
[2019-01-24 07:32] LABS: INTERNATIONAL RATION (INR) 1.01; PROTHROMBIN TIME 13.8 SEC (11.4-15.4)
[2019-01-24 07:38] LABS: MEAN CORPUSCULAR HEMOGLOBIN 29.8 pg (27.0-33.4); MEAN CORPUSCULAR HGB CONC 34.2 g/dL (32.0-36.0); MEAN CORPUSCULAR VOLUME 87 fl (80-97); PLATELET COUNT 266 10^3/uL (150-450); RED BLOOD COUNT 3.89 10^6/uL (3.72-5.28); RED CELL DISTRIBUTION WIDTH 14.3 % (11.5-14.0); WHITE BLOOD COUNT 4.1 10^3/uL (4.0-10.5)
[2019-01-24 07:46] LABS: ANION GAP 8 (5-19); BLOOD UREA NITROGEN 10 mg/dL (7-20); CALCIUM 9.4 mg/dL (8.4-10.2); CARBON DIOXIDE 27 mmol/L (22-30); CHLORIDE 107 mmol/L (98-107); CHOLESTEROL 189.14 mg/dL (0-200); GLUCOSE 89 mg/dL (75-110); POTASSIUM 3.8 mmol/L (3.6-5.0); SODIUM 141.6 mmol/L (137-145); TRIGLYCERIDES 110 mg/dL (<150)
[2019-01-24 07:54] LABS: HEMOGLOBIN 11.6 g/dL (12.0-15.5)
[2019-01-24 07:57] LABS: DIRECT LDL 110 mg/dL (<100)
[2019-01-24] MEDS: BENZTROPINE MESYLATE 1 MG TABLET PO SCH ×2 (08:57→22:54)
[2019-01-24] MEDS: ENOXAPARIN SODIUM INJ 40 MG/0.4 ML DISP.SYRIN SUBCUT SCH (10:11)
[2019-01-24] MEDS: ALPRAZOLAM 0.5 MG TABLET PO SCH ×2 (10:11→22:56)
[2019-01-24] MEDS: ASPIRIN 325 MG TABLET, ENT COATED PO SCH (10:11)
[2019-01-24] MEDS: FLUOXETINE HCL 20 MG CAPSULE PO SCH (10:11)
--- NOTE | 2019-01-24 13:13 | PDOC PROGRESS REPORT ---
Addendum entered and electronically signed by GREY WILKINSON PA-C 01/24/19 13:14: Provider Note Provider Note: Case discussed with cardiology. Patient is agreeable with plan. Original Note: Subjective Progress Note for:: 01/24/19 Subjective:: Patient resting comfortably in bed. duty officer present. Patient reports no chest pain times 24 hours. Cardiology evaluated her in the last 24 hours. The plan is for a stress test tomorrow. Patient reports therapeutic INR for an extended period of time when on Coumadin 6 mg daily. She denies history of bleeding while on Coumadin. She has had no changes in her breathing or other cardiac related symptoms since the relief of chest pain. Appetite good. No breathing issues at this time. Reason For Visit: CHEST PAIN Physical Exam Vital Signs: Temp Pulse Resp BP Pulse Ox 98.1 F 90 16 114/62 98 01/24/19 11:17 01/24/19 11:17 01/24/19 11:17 01/24/19 11:17 01/24/19 11:17 Intake & Output 01/23/19 01/24/19 01/25/19 06:59 06:59 06:59 Intake Total 2648 Output Total 1300 Balance 1348 Weight 64.4 kg 64.5 kg General appearance: PRESENT: no acute distress, cooperative, well-developed Head exam: PRESENT: atraumatic, normocephalic Eye exam: PRESENT: conjunctiva pink, EOMI, PERRLA. ABSENT: scleral icterus Ear exam: PRESENT: normal external ear exam Mouth exam: PRESENT: moist, tongue midline Neck exam: ABSENT: carotid bruit, JVD, lymphadenopathy, thyromegaly Respiratory exam: PRESENT: rales, other. ABSENT: rhonchi, wheezes Cardiovascular exam: PRESENT: RRR. ABSENT: diastolic murmur, rubs, systolic murmur Pulses: PRESENT: normal dorsalis pedis pul Vascular exam: PRESENT: normal capillary refill GI/Abdominal exam: PRESENT: normal bowel sounds, soft. ABSENT: distended, guarding, mass, organolmegaly, rebound, tenderness Rectal exam: PRESENT: deferred Extremities exam: PRESENT: full ROM. ABSENT: calf tenderness, clubbing, pedal edema Neurological exam: PRESENT: alert, awake, oriented to person, oriented to place, oriented to time, oriented to situation, CN II-XII grossly intact. ABSENT: motor sensory deficit Psychiatric exam: PRESENT: appropriate affect, normal mood. ABSENT: homicidal ideation, suicidal ideation Skin exam: PRESENT: dry, intact, warm. ABSENT: cyanosis, rash Results Laboratory Results: 01/24/19 06:18 01/24/19 06:18 01/24/19 01/24/19 06:18 06:18 WBC 4.1 RBC 3.89 Hgb 11.6 L D Hct 34.0 L MCV 87 MCH 29.8 MCHC 34.2 RDW 14.3 H Plt Count 266 Sodium 141.6 Potassium 3.8 Chloride 107 Carbon Dioxide 27 Anion Gap 8 BUN 10 Creatinine 0.72 Est GFR ( Amer) > 60 Est GFR (Non-Af Amer) > 60 Glucose 89 Calcium 9.4 Triglycerides 110 Cholesterol 189.14 LDL Cholesterol Direct 110 H VLDL Cholesterol 22.0 HDL Cholesterol 57 01/23/19 01/23/19 01/23/19 00:19 00:19 03:55 Creatine Kinase 25 L CK-MB (CK-2) 0.54 Troponin I < 0.012 < 0.012 01/23/19 01/23/19 01/23/19 03:55 03:55 11:52 Creatine Kinase 26 L 26 L CK-MB (CK-2) 0.54 Troponin I Cancelled 01/23/19 01/23/19 01/23/19 11:52 17:20 17:20 Creatine Kinase 25 L CK-MB (CK-2) 0.49 0.48 Troponin I < 0.012 < 0.012 Impressions: Chest X-Ray 01/22/19 22:31 IMPRESSION: No acute cardiopulmonary process copyright 2011 [employer]- All Rights Reserved Chest/Abdomen CTA 01/23/19 03:50 IMPRESSION: Negative for acute intrathoracic process TECHNICAL DOCUMENTATION: Quality ID # 436: Final reports with documentation of one or more dose reduction techniques (e.g., Automated exposure control, adjustment of the mA and/or kV according to patient size, use of iterative reconstruction technique) copyright 2011 [employer]- All Rights Reserved Assessment and Plan - Diagnosis (1) History of intracranial aneurysm Is this a current diagnosis for this admission?: Yes (2) History of pulmonary embolus (PE) Is this a current diagnosis for this admission?: Yes (3) History of UT (myocardial infarction) Is this a current diagnosis for this admission?: Yes - Time Time Spent with patient: 15-24 minutes Medications reviewed and adjusted accordingly: Yes Anticipated discharge: Other - Usp Within: within 48 hours - Inpatient Certification Based on my medical assessment, after consideration of the patient's comorbid ities, presenting symptoms, or acuity I expect that the services needed warrant INPATIENT care.: Yes I certify that my determination is in accordance with my understanding of Medicare's requirements for reasonable and necessary INPATIENT services [42 CFR 412.3e].: Yes - Plan Summary Plan Summary: 1. Chest pain-not felt to be cardiac related at this time. We will however obtain a stress test Friday morning, and then can be considered for discharge after cardiology makes their recommendations. This is the safest plan for the patient since she would be unable to obtain an outpatient stress test. 2. Factor V Leiden deficiency/history of pulmonary embolus-Lovenox to Coumadin bridge. INR daily. Discontinue Lovenox after INR therapeutic times 48 hours. 3. History of intracranial hemorrhage 4. History of UT. LDL 114. Started on atorvastatin 20 mg nightly. Aspirin daily. 5. Psychiatric medications: Optimization could be achieved alternative to these medications, however will defer to outpatient psychiatry. Appears to have PTSD, depression and/or possibly bipolar. disposition: Expect patient can be discharged after stress test on January 25.
--- NOTE | 2019-01-24 18:50 | Progress Note ---
Provider Note Provider Note: CARDIOLOGY PROGRESS NOTE by Dr. Fatuma Carrasquillo on 01/24/2019. OBJECTIVE: The patient has no further chest pain or discomfort. There is no shortness of breath. There is no arrhythmias seen on the monitor. There is no palpitations. There is no PND orthopnea or leg edema. There is no bleeding on Coumadin. There is no TIA CVA symptoms. PHYSICAL EXAMINATION: The patient is well-built and well-nourished. She is well-groomed. She is in no acute distress. Selected Entries 01/24/19 07:41 Temperature 97.5 F Temperature Oral Source Pulse Rate 70 Respiratory 16 Rate Blood Pressure 134/80 H Blood Pressure 98 Mean BP Location Left Arm BP Position Supine O2 Sat by Pulse 100 Oximetry Oxygen Delivery Room Air Method HEAD: Atraumatic, normocephalic. EYES: Pupils equal round and reactive to light, extraocular movements intact, sclera anicteric, conjunctiva are normal. ENT: TMs normal, nares patent, oropharynx clear without exudates. Moist mucous membranes. NECK: Normal range of motion, supple without lymphadenopathy or JVD. Carotids are equal there is no bruits. There is no thyromegaly. There is no accessory muscles of respiration in use. Trachea central LUNGS: There is diminished air entry and prolonged expiration. Breath sounds clear to auscultation bilaterally and equal. No wheezes rales or rhonchi. Percussion there is hyperresonance. On palpation there is no chest wall tenderness. HEART: S1-S2 is heard. S1 is of normal intensity. There is no S3 gallop. There is no S4 gallop. There is systolic murmur left sternal border and apex without radiation. There is no rub.. ABDOMEN: Soft, nontender, normoactive bowel sounds. There is no hepatosplenic megaly no guarding, no rebound. No masses appreciated. EXTREMITIES: Normal range of motion, no pitting or edema. No clubbing or cyanosis. Femorals are well felt. There is no femoral bruits. Leg pulses are well felt. There is no DVT or cellulitis. There is no calf tenderness NEUROLOGICAL: Cranial nerves II through XII grossly intact. Normal speech, normal gait. The patient is awake alert oriented x3 with no focal deficits. PSYCH: Normal mood, normal affect. The patient judgment and insight are intact SKIN: Warm, Dry, normal turgor, no rashes or lesions noted. There is no petechia or ecchymosis. 01/23/19 01/24/19 01/24/19 17:20 06:18 06:18 WBC 4.1 RBC 3.89 Hgb 11.6 L D Hct 34.0 L MCV 87 MCH 29.8 MCHC 34.2 RDW 14.3 H Plt Count 266 PT INR Sodium 141.6 Potassium 3.8 Chloride 107 Carbon Dioxide 27 Anion Gap 8 BUN 10 Creatinine 0.72 Est GFR (Non-Af Amer) > 60 Glucose 89 Calcium 9.4 CK-MB (CK-2) 0.48 Troponin I < 0.012 Triglycerides 110 Cholesterol 189.14 LDL Cholesterol Direct 110 H VLDL Cholesterol 22.0 HDL Cholesterol 57 01/24/19 06:18 WBC RBC Hgb Hct MCV MCH MCHC RDW Plt Count PT 13.8 INR 1.01 Sodium Potassium Chloride Carbon Dioxide Anion Gap BUN Creatinine Est GFR (Non-Af Amer) Glucose Calcium CK-MB (CK-2) Troponin I Triglycerides Cholesterol LDL Cholesterol Direct VLDL Cholesterol HDL Cholesterol IMPRESSION/RECOMMENDATION: 1. Chest pain: Appears noncardiac. So far cardiac enzymes are negative. And no major EKG changes Evie or minor EKG changes. With the patient in view of the patient's prior history of CAD, would at least get a IV Lexiscan Cardiolite stress test, and will schedule it for tomorrow. 2. History of coronary artery disease: History of old NV. Continue current medications. 3 factor V Leyden deficiency: History of pulmonary embolism x2. The patient pulmonary CTA is negative for recurrence of pulmonary embolism. Note that the patient's INR is subtherapeutic. We will increase the patient's Lovenox to 1 mg/kg subcutaneously every 12 hours. Continue the patient on Coumadin. 4. Hypertension: Blood pressure is well controlled. 5. Prior history of CVA and TIA, with a history of intracranial hemorrhage due to cerebral aneurysm, status post clipping and stenting of the cerebral arteries as mentioned earlier. Appears to be stable. 6. Hyperlipidemia. Continue statin, and strict low-fat low-cholesterol diet. 7.History of mitral valve prolapse. 8. COPD: Stable at baseline. No evidence of acute exacerbation of COPD. 9. Tobacco abuse disorder: Tobacco cessation counseling given. 3 minutes spent on this. MEDICATIONS reviewed. Medications adjusted with increasing the dose of Lovenox. Medical decision making is of high complexity. 60 minutes spent on this p atient more than 50% of time spent in direct patient care. Management plan discussed with attending physician on the case.
[2019-01-24] MEDS: DONEPEZIL HCL 5 MG TABLET PO SCH (22:52)
[2019-01-24] MEDS: ATORVASTATIN CALCIUM 20 MG TABLET PO SCH (22:54)
[2019-01-24] MEDS: MIRTAZAPINE 15 MG TABLET PO SCH (22:55)
[2019-01-24] MEDS: WARFARIN SODIUM 3 MG TABLET PO SCH (22:55)
[2019-01-24] MEDS: OLANZAPINE 5 MG TAB.RAPDIS PO SCH (22:57)
[2019-01-25 05:20] LABS: INTERNATIONAL RATION (INR) 0.99; PROTHROMBIN TIME 13.6 SEC (11.4-15.4)
[2019-01-25] MEDS: PANTOPRAZOLE SODIUM 40 MG TABLET.DR PO SCH (06:14)
[2019-01-25] MEDS: BENZTROPINE MESYLATE 1 MG TABLET PO SCH ×2 (11:34→21:30)
[2019-01-25] MEDS: FLUOXETINE HCL 20 MG CAPSULE PO SCH (11:34)
[2019-01-25] MEDS: ALPRAZOLAM 0.5 MG TABLET PO SCH ×2 (11:34→21:37)
[2019-01-25] MEDS: ASPIRIN 325 MG TABLET, ENT COATED PO SCH (11:35)
[2019-01-25] MEDS: ENOXAPARIN SODIUM INJ 40 MG/0.4 ML DISP.SYRIN SUBCUT SCH (12:01)
[2019-01-25] MEDS ORDERED: REGADENOSON INJ 0.4 MG/5 ML DISP.SYRIN IV ONE (12:25)
--- NOTE | 2019-01-25 17:01 | PDOC PROGRESS REPORT ---
Subjective Progress Note for:: 01/25/19 Subjective:: Doing much better, denies chest pain. No shortness of breath. Denies fever or chills. Patient admits to not taking her Coumadin for about 2 weeks after she got out of correction. Currently back in correction and had been on it for a few days. Reason For Visit: CHEST PAIN Physical Exam Vital Signs: Temp Pulse Resp BP Pulse Ox 98.0 F 84 18 142/80 H 100 01/25/19 12:11 01/25/19 14:00 01/25/19 12:11 01/25/19 12:11 01/25/19 12:11 Intake & Output 01/24/19 01/25/19 01/26/19 06:59 06:59 06:59 Intake Total 2648 3197 1000 Output Total 1300 5600 Balance 1348 -2403 1000 Weight 64.5 kg 64.5 kg GENERAL: Well-developed, no acute distress HEENT: Normocephalic/atraumatic NECK supple, no JVD CARDIOVASCULAR: RRR, normal S1-S2 LUNGS: CTA bilaterally ABDOMEN: Soft, NT, NL bowel sounds EXTREMITIES: No edema, clubbing, cyanosis NEUROLOGICAL: Alert, oriented x 3, nonfocal Results Laboratory Results: 01/24/19 06:18 01/24/19 06:18 01/23/19 01/23/19 01/23/19 00:19 00:19 03:55 Creatine Kinase 25 L CK-MB (CK-2) 0.54 Troponin I < 0.012 < 0.012 01/23/19 01/23/19 01/23/19 03:55 03:55 11:52 Creatine Kinase 26 L 26 L CK-MB (CK-2) 0.54 Troponin I Cancelled 01/23/19 01/23/19 01/23/19 11:52 17:20 17:20 Creatine Kinase 25 L CK-MB (CK-2) 0.49 0.48 Troponin I < 0.012 < 0.012 Impressions: Chest X-Ray 01/22/19 22:31 IMPRESSION: No acute cardiopulmonary process copyright 2011 [employer]- All Rights Reserved Chest/Abdomen CTA 01/23/19 03:50 IMPRESSION: Negative for acute intrathoracic process TECHNICAL DOCUMENTATION: Quality ID # 436: Final reports with documentation of one or more dose reduction techniques (e.g., Automated exposure control, adjustment of the mA and/or kV according to patient size, use of iterative reconstruction technique) copyright 2011 [employer]- All Rights Reserved Assessment and Plan - Diagnosis (1) Chest pain Qualifiers: Chest pain type: unspecified Qualified Code(s): R07.9 - Chest pain, unspe cified Is this a current diagnosis for this admission?: Yes (2) Factor 5 Leiden mutation, heterozygous Is this a current diagnosis for this admission?: Yes (3) History of AK (myocardial infarction) Is this a current diagnosis for this admission?: Yes (4) History of intracranial aneurysm Is this a current diagnosis for this admission?: Yes (5) History of pulmonary embolus (PE) Is this a current diagnosis for this admission?: Yes (6) PVD (peripheral vascular disease) Is this a current diagnosis for this admission?: Yes (7) Tobacco abuse Is this a current diagnosis for this admission?: Yes - Plan Summary Plan Summary: Patient with no more chest pain. Stress Cardiolite done today and apparently negative. Please follow-up official result. Patient with history of PEs and factor V Leiden deficiency. She also has history of intracranial hemorrhage. She is on Coumadin, which is reversible given her complicated history including the intracranial hemorrhage. Unfortun ately INR is currently subtherapeutic. Will increase Lovenox to therapeutic dose and continue loading Coumadin per pharmacy. Follow-up CBC, PT/INR in a.m. Continue medical management otherwise.
[2019-01-25] MEDS: DONEPEZIL HCL 5 MG TABLET PO SCH (21:29)
[2019-01-25] MEDS: ATORVASTATIN CALCIUM 20 MG TABLET PO SCH (21:30)
[2019-01-25] MEDS: ENOXAPARIN SODIUM INJ 60 MG/0.6 ML DISP.SYRIN SUBCUT SCH (21:31)
[2019-01-25] MEDS: WARFARIN SODIUM 3 MG TABLET PO SCH (21:34)
[2019-01-25] MEDS: MIRTAZAPINE 15 MG TABLET PO SCH (21:35)
[2019-01-25] MEDS: OLANZAPINE 5 MG TAB.RAPDIS PO SCH (21:37)
--- NOTE | 2019-01-25 23:03 | Progress Note ---
Provider Note Provider Note: CARDIOLOGY PROGRESS NOTE by Dr. Fatuma Carrasquillo on 01/25/2019. SUBJECTIVE: The patient has no chest pain or discomfort. There is no shortness of breath. There is no PND orthopnea or leg edema. There is no arrhythmias seen on the monitor. There is no TIA CVA symptoms. The patient underwent uneventful IV Lexiscan Cardiolite stress test today. Results are below. PHYSICAL EXAMINATION: The patient is well-built and well-nourished. She is well-groomed.. At present no acute distress. Selected Entries 01/25/19 12:11 Temperature 98.0 F Temperature Oral Source Pulse Rate 90 Respiratory 18 Rate Blood Pressure 142/80 H Blood Pressure 100 Mean BP Location Right Arm BP Position Sitting O2 Sat by Pulse 100 Oximetry Oxygen Delivery Room Air Method HEAD: Atraumatic, normocephalic. EYES: Pupils equal round and reactive to light, extraocular movements intact, sclera anicteric, conjunctiva are normal. ENT: TMs normal, nares patent, oropharynx clear without exudates. Moist mucous membranes. NECK: Normal range of motion, supple without lymphadenopathy or JVD. Carotids are equal there is no bruits. There is no thyromegaly. There is no accessory muscles of respiration in use. Trachea central LUNGS: There is diminished air entry and prolonged expiration. Breath sounds clear to auscultation bilaterally and equal. No wheezes rales or rhonchi. Percussion there is hyperresonance. On palpation there is no chest wall tenderness. HEART: S1-S2 is heard. S1 is of normal intensity. There is no S3 gallop. There is no S4 gallop. There is systolic murmur left sternal border and apex without radiation. There is no rub.. ABDOMEN: Soft, nontender, normoactive bowel sounds. There is no hepatosplenic megaly no guarding, no rebound. No masses appreciated. EXTREMITIES: Normal range of motion, no pitting or edema. No clubbing or cyanosis. Femorals are well felt. There is no femoral bruits. Leg pulses are well felt. There is no DVT or cellulitis. There is no calf tenderness NEUROLOGICAL: Cranial nerves II through XII grossly intact. Normal speech, normal gait. The patient is awake alert oriented x3 with no focal deficits. PSYCH: Normal mood, normal affect. The patient judgment and insight are intact SKIN: Warm, Dry, normal turgor, no rashes or lesions noted. There is no petechia or ecchymosis. 01/25/19 04:42 PT 13.6 INR 0.99 The patient is IV Lexiscan Cardiolite stress test showed no reversible ischemia, and there was no WI or scar. IMPRESSION/RECOMMENDATION: 1. Chest pain: Appears noncardiac. So far cardiac enzymes are negative. And no major EKG changes Evie or minor EKG changes. With the patient in view of the patient's prior history of CAD. The patient's IV Lexiscan Cardiolite stress test done today was negative for ischemia or WI. 2. History of coronary artery disease: History of old WI. Continue current medications. 3 factor V Leyden deficiency: History of pulmonary embolism x2. The patient pulmonary CTA is negative for recurrence of pulmonary embolism. Note that the patient's INR is subtherapeutic. We will increase the patient's Lovenox to 1 mg/kg subcutaneously every 12 hours. Continue the patient on Coumadin. 4. Hypertension: Blood pressure is well controlled. 5. Prior history of CVA and TIA, with a history of intracranial hemorrhage due to cerebral aneurysm, status post clipping and stenting of the cerebral arteries as mentioned earlier. Appears to be stable. 6. Hyperlipidemia. Continue statin, and strict low-fat low-cholesterol diet. 7.History of mitral valve prolapse. 8. COPD: Stable at baseline. No evidence of acute exacerbation of COPD. 9. Tobacco abuse disorder: Tobacco cessation counseling was already given. Stress test findings were discussed with attending physician and with the patient. Cardiac status is stable. Would recommend discharging the patient on Coumadin. Will sign off. MEDICATIONS reviewed. Medications adjusted with increasing the dose of Lovenox. Medical decision making is of moderate complexity. 60 minutes spent on this patient more than 50% of time spent in direct patient care. Management plan discussed with attending physician on the case.
[2019-01-26 04:30] LABS: ABSOLUTE BASOPHILS # (AUTO) 0.1 10^3/uL (0.0-0.2); ABSOLUTE EOSINOPHILS # (AUTO) 0.2 10^3/uL (0.0-0.6); ABSOLUTE LYMPHOCYTES (AUTO) 2.6 10^3/uL (0.5-4.7); ABSOLUTE MONOCYTES (AUTO) 0.4 10^3/uL (0.1-1.4); ABSOLUTE NEUT (AUTO) 1.8 10^3/uL (1.7-8.2); BASOPHILS % (AUTO) 1.9 % (0-2); EOSINOPHILS % (AUTO) 3.8 % (0-6); HEMATOCRIT 33.4 % (36.0-47.0); HEMOGLOBIN 11.4 g/dL (12.0-15.5); LYMPHOCYTES % (AUTO) 50.6 % (13-45); MEAN CORPUSCULAR HEMOGLOBIN 29.5 pg (27.0-33.4); MEAN CORPUSCULAR VOLUME 87 fl (80-97); MONOCYTES % (AUTO) 7.9 % (3-13); PLATELET COUNT 224 10^3/uL (150-450); RED BLOOD COUNT 3.85 10^6/uL (3.72-5.28); RED CELL DISTRIBUTION WIDTH 13.9 % (11.5-14.0); SEGMENTED NEUTROPHILS % (AUTO) 35.8 % (42-78); TOTAL CELLS COUNTED % (AUTO) 100 %; WHITE BLOOD COUNT 5.1 10^3/uL (4.0-10.5)
[2019-01-26 04:55] LABS: INTERNATIONAL RATION (INR) 0.98; PROTHROMBIN TIME 13.4 SEC (11.4-15.4)
[2019-01-26 04:57] LABS: ANION GAP 13 (5-19); BLOOD UREA NITROGEN 16 mg/dL (7-20); CALCIUM 8.5 mg/dL (8.4-10.2); CARBON DIOXIDE 23 mmol/L (22-30); CHLORIDE 103 mmol/L (98-107); GLUCOSE 110 mg/dL (75-110); POTASSIUM 3.8 mmol/L (3.6-5.0); SODIUM 139.3 mmol/L (137-145)
[2019-01-26] MEDS: PANTOPRAZOLE SODIUM 40 MG TABLET.DR PO SCH (05:35)
[2019-01-26] MEDS: ALPRAZOLAM 0.5 MG TABLET PO SCH (09:06)
[2019-01-26] MEDS: FLUOXETINE HCL 20 MG CAPSULE PO SCH (09:06)
[2019-01-26] MEDS: ASPIRIN 325 MG TABLET, ENT COATED PO SCH (09:06)
[2019-01-26] MEDS: BENZTROPINE MESYLATE 1 MG TABLET PO SCH (09:07)
[2019-01-26] MEDS: ENOXAPARIN SODIUM INJ 60 MG/0.6 ML DISP.SYRIN SUBCUT SCH (09:07)
[2019-01-26] MEDS ORDERED: ACETAMINOPHEN 325 MG TABLET PO PRN (09:30)
[2019-01-26] MEDS ORDERED: ACETAMINOPHEN 650 MG SUPP.RECT PR PRN (09:30)
[2019-01-26 12:29] VITALS: BP 124/96
--- NOTE | 2019-01-26 18:09 | Left Against Medical Advice ---
Against Medical Advice Admission Date/Time: 01/23/19 04:57 Primary Care Provider: Date of Patient Emm[place]: 01/26/19 - Diagnosis: (1) Chest pain Is this a current diagnosis for this admission?: Yes (2) DVT prophylaxis Is this a current diagnosis for this admission?: Yes (3) Factor 5 Leiden mutation, heterozygous Is this a current diagnosis for this admission?: Yes (4) History of ND (myocardial infarction) Is this a current diagnosis for this admission?: Yes (5) History of intracranial aneurysm Is this a current diagnosis for this admission?: Yes (6) History of pulmonary embolus (PE) Is this a current diagnosis for this admission?: Yes (7) PVD (peripheral vascular disease) Is this a current diagnosis for this admission?: Yes (8) Tobacco abuse Is this a current diagnosis for this admission?: Yes - Summary: Summary: ERIC HART is a 48 year old female with history of multiple medical problems that will be mentioned below, who is currently an inmate and presents with left substernal and inframammary chest pain that started as a sharp pain and graded 9/10 in severity with radiation to her left jaw as well as nausea and vomiting twice. She admitted to [facility] with her symptoms and later experienced chest heaviness and dyspnea. She denies any cough or wheezing or hemoptysis. She has a history of factor V Leiden deficiency and has been on Coumadin but ran out for 2-1/2 weeks and went back on it to days ago. Upon presentation to the emergency room her EKG showed normal sinus rhythm with a rate of 83 with left atrial enlargement and Q waves inferiorly. Vital signs were within normal and labs revealed normal CBC and INR 0.92, calcium of 10.5 and her initial set of cardiac enzymes as well as a repeat set came back negative. Portable chest X ray showed no acute cardiopulmonary disease and chest CTA revealed no evidence for PE or acute pathology. The patient was given 1 sublingual nitro glycerin on route to the ER and later at the a gram of Nitropaste as well as 4 baby aspirin. She was fairly comfortable during my interview. Her 3 sets of cardiac enzymes are negative. Her cardiac stress test reported no ischemia. Her INR is subtherapeutic and patient overlap with Lovenox while she is getting Coumadin 6 mg. I discussed with her that she needs to stay until her INR is therapeutic. At our advice patient left AGAINST MEDICAL ADVICE.
--- NOTE | 2019-01-28 18:12 | DRAGON STRESS TEST REPORT ---
INTRAVENOUS LEXISCAN CARDIOLITE STRESS TEST USING SINGLE PHOTON EMMISION COMPUTERIZED TOMOGRAPHIC. DATE OF PROCEDURE: January 28, 2019 INDICATION : Chest pain CARDIAC RISK FACTORS: Diabetes, hypertension RESTING EKG: Sinus rhythm, minor nonspecific T wave changes are noted. STRESS EKG: No significant ST segment changes noted with LexiScan bolus REASON FOR TERMINATION: Protocol. PROCEDURE REPORT: Baseline heart rate 80 beats per minute with blood pressure of 111/74. Patient had no significant complaints. Patient was bolused with Lexiscan 0.4 mg intravenously followed by saline bolus. Heart rate at 2 minutes post bolus 114 with a blood pressure of 131/64. 3 minutes post bolus heart rate 104 with blood pressure of 118/72. No significant EKG changes were noted. Patient had no significant complaints during the procedure or postprocedure. CONCLUSIONS: Normal EKG and hemodynamic response to IV LexiScan. NUCLEAR DATA: At rest the patient was given 12.67 millicuries of technetium 99 sestamibi injected intravenously. As per protocol rest gated SPECT images were obtained. On day of stress test, the patient was given intravenous LexiScan at a dose of 0.4 mg in 5 mL intravenously, followed by flush with normal saline. Subsequently the stress dose of 36.5 millicuries of technetium 99 sestamibi was injected intravenously. As per protocol stress gated images were obtained. NUCLEAR INTERPRETATION: Both raw and processed data were used for interpretation. Visual, qualitative, computer-generated quantitative data was used. There was good myocardial uptake of technetium compound. Motion artifact and soft tissue attenuations were noted. Increased visceral uptake was noted. No definitive areas of transient perfusion defect noted, No definitive areas of fixed perfusion defect or scars noted. Breast attenuation artifacts were noted. EKG gated imaging showed LV EF at 56 %, rest and stress gated EF similar visually. T. I D. ratio was 0.82. Lung heart ratio noted to be within normal limits 0.32. No significant extracardiac and abnormal radiotracer activities were noted. RV free wall uptake was noted to be borderline increased. IMPRESSION: Also refer to comments under nuclear interpretation. Also test results needs to be interpreted in the context of pretest probability. Breast attenuation artifact is noted. This caused some difficulty with nuclear interpretation but overall satisfactory study. 1. No definitive areas of transient perfusion defect noted. 2. There is no definitive scintigraphic evidence of myocardial infarction/scar. 3. EKG gated imaging shows left ventricular ejection fraction of approx. 56 %. 4. Clinical correlation requested as worse disease and or balanced ischemia could be missed. In approximately 10% of the cases Lexiscan may not cause adequate vasodilatory stress. RECOMMENDATIONS: Aggressive risk factor modification and medical management. Further evaluation may be needed if continued symptoms or other high risk indicators are noted on clinical evaluation. Close cardiology follow-up is also recommended. Clinical correlation with echocardiogram derived ejection fraction. Inability to exercise by itself can lead to increased cardiovascular event risks. Consider cardiology consultation and or follow-up if clinically indicated. I am available for cardiology evaluation and consultation if requested by the parts sales associate, unless patient already has a digital marketing lead. Dr. Melissa Santillan. MRCP Board certified in cardiology and sleep medicine. Board certified in nuclear cardiology, adult echocardiography. ADEN
== END 2019-01-26 13:45 | disposition left against medical advice (07) ==
LOC: ER 22:17 → EH 01-23 04:57 → 5 01-23 07:01
PROVIDERS: ADMIT Family Medicine; ATTEND Family Medicine
DX: R07.2 Precordial pain (principal); D68.51 Activated protein C resistance; I73.9 Peripheral vascular disease, unspecified; R11.2 Nausea with vomiting, unspecified; I25.10 Atherosclerotic heart disease of native coronary artery without angina pectoris; R53.83 Other fatigue; R53.1 Weakness; J44.9 Chronic obstructive pulmonary disease, unspecified; F17.200 Nicotine dependence, unspecified, uncomplicated; E78.5 Hyperlipidemia, unspecified; I25.2 Old myocardial infarction; Z86.711 Personal history of pulmonary embolism; Z86.79 Personal history of other diseases of the circulatory system; Z53.21 Procedure and treatment not carried out due to patient leaving prior to being seen by health care provider; Z79.02 Long term (current) use of antithrombotics/antiplatelets; Z98.890 Other specified postprocedural states; Z90.49 Acquired absence of other specified parts of digestive tract; Z90.710 Acquired absence of both cervix and uterus; Z82.49 Family history of ischemic heart disease and other diseases of the circulatory system
CPT/HCPCS: 93005 ×2; 99285; 96360; 36415 ×4; 82553; 82550; 85025 ×2; 85027; 85610 ×4; 80048 ×2; 80053; 84484; 80061 ×2; 93017; 71045; 78452; 71275; 93010 ×2; G0378 ×5; A9500; J2785; J3490 ×12; J1650 ×4; J7030 ×2; J7040; Q9969

== ENCOUNTER → 2019-06-24 | Outpatient (CLI) | payer OTHER ==
[2019-06-24 14:42] LABS: INTERNATIONAL RATION (INR) 1.09; PROTHROMBIN TIME 14.2 SEC (11.4-15.4)
== END ==
LOC: LAB 14:01
PROVIDERS: ATTEND Internal Medicine Pulmonary Disease
DX: Z51.81 Encounter for therapeutic drug level monitoring (principal); Z79.01 Long term (current) use of anticoagulants
CPT/HCPCS: 36415; 85610

== ENCOUNTER → 2019-06-29 | Outpatient (CLI) | payer OTHER ==
[~2019-06-29] MED LIST: DIPHENHYDRAMINE HCL 50 MG/ML VIAL ONE
--- NOTE | 2019-06-29 14:07 | RADIOLOGY REPORT (SQ) ---
EXAM DESCRIPTION: CT HEAD WITH COMPLETED DATE/TIME: 06/29/2019 1:54 pm REASON FOR STUDY: R51 HEADACHE R51 HEADACHE COMPARISON: None. TECHNIQUE: Axial images acquired through the brain with intravenous contrast. Images reviewed with b one, brain and subdural windows. Images stored on PACS. All CT scanners at this facility use dose modulation, iterative reconstruction, and/or weight based d osing when appropriate to reduce radiation dose to as low as reasonably achievable (ALARA). [facility]: Dose Right [facility]: CareDose [facility]: Dose Right [facility]: Teradose 4D [facility]: [employer] CONTRAST TYPE AND DOSE: contrast/concentration: Isovue 350.00 mg/ml; Total Contrast Delivered: 50.0 ml; Total Saline Delivered: 50.0 ml RENAL FUNCTION: Creatinine 0.7 RADIATION DOSE: CT Rad equipment meets quality standard of care and radiation dose reduction techniq ues were employed. CTDIvol: NaN - NaN mGy. DLP: 0 mGy-cm.. LIMITATIONS: None. FINDINGS: VENTRICLES: Normal size and contour. CEREBRUM: No masses. No hemorrhage. No midline shift. Normal harman/white matter differentiation. No ev idence for acute infarction. No enhancing lesions. CEREBELLUM: No masses. No hemorrhage. No alteration of density. No evidence for acute infarction. No enhancing lesions. EXTRA-AXIAL SPACES: No fluid collections. No enhancing lesions. ORBITS AND GLOBE: No intra- or extraconal masses. Normal contour of globe without masses. CALVARIUM: Craniotomy changes in the left frontotemporal area. PARANASAL SINUSES: Mucoperiosteal thickening in the left frontal sinus. SOFT TISSUES: No mass or hematoma. OTHER: Aneurysm clip on the left. Stent on the left. IMPRESSION: Surgical changes. No acute intracranial imaging findings. Mild left frontal sinus dise ase. EVIDENCE OF ACUTE STROKE: NO. TECHNICAL DOCUMENTATION: JOB ID: [id number] Quality ID # [id number]: Final reports with documentation of one or more dose reduction techniques (e.g., Au tomated exposure control, adjustment of the mA and/or kV according to patient size, use of iterative reconstruction technique) 2010 [employer]- All Rights Reserved Reading location - IP/workstation name: [email or web address]
== END ==
LOC: RAD 13:30
PROVIDERS: ATTEND Family Medicine
DX: J32.1 Chronic frontal sinusitis (principal); R51 Headache
CPT/HCPCS: 82565; 70460; J1200

== ENCOUNTER → 2019-11-22 | Outpatient (CLI) | payer OTHER ==
--- NOTE | 2019-11-22 15:36 | XCELERA REPORT ---
[address] [address] Tel: [phone] Fax: [phone] Lower Extremity Venous Evaluation Procedure: Color flow and duplex imaging of the veins of the left lower extremity. Left Sided Venous Evaluation Normal vessel filling wall to wall, compression and augmentation as well as Colour flow down to the infrageniculate veins. Interpretation Summary No duplex evidence of DVT or obstruction in the left lower extremity. Name: ERIC HART Age: 49 yrs Gender: Female : 1970 Patient Status: Outpatient Patient Location: Study Date: 11/22/2019 02:56 PM Reason For Study: SWELLING Ordering Physician: DORIS SUAREZ Performed By: Tatyana Abdi : DORIS SUAREZ > Nestor Suarez
== END ==
LOC: SP 14:21
PROVIDERS: ATTEND Registered Nurse
DX: R60.9 Edema, unspecified (principal)
CPT/HCPCS: 93971